=== PATIENT | female | born 1945 | race Caucasian/White ===

== ENCOUNTER 2017-11-27 12:37 | Inpatient (IN) | payer BC, OTHER ==
[2017-11-27] MEDS ORDERED: TUSSIONEX PENNKINETIC SUSP PO PRN (16:30)
[2017-11-27] MEDS ORDERED: NS 1/2 1000 ML IV 1,000 ML IV ONE (16:41)
[2017-11-27 17:05] LABS: BASOPHILS # (AUTO) 0.1 X10^3/uL (0.0-0.1); BASOPHILS % (AUTO) 0.6 % (0.2-1.0); EOSINOPHILS # (AUTO) 0.1 x10^3/uL (0.0-0.2); EOSINOPHILS % (AUTO) 1.3 % (0.9-2.9); HEMATOCRIT 41.3 % (36.0-47.0); HEMOGLOBIN 14.3 g/dL (12.0-16.0); LYMPHOCYTES % (AUTO) 23.9 % (21.0-51.0); MEAN CORPUSCULAR HGB CONC 34.5 g/dL (33.0-35.0); MEAN CORPUSCULAR VOLUME 89.7 fL (80.0-100.0); MEAN PLATELET VOLUME 8.1 fL (7.4-11.0); MONOCYTES # (AUTO) 0.8 x10^3/uL (0.3-0.8); MONOCYTES % (AUTO) 9.9 % (0.0-13.0); NEUTROPHILS # (AUTO) 5.4 x10^3/uL (2.2-4.8); NEUTROPHILS % (AUTO) 64.3 % (42.0-75.0); PLATELET COUNT 322 X10^3/uL (150.0-450.0); RED BLOOD COUNT 4.61 X10^6/uL (3.5-5.4); RED CELL DISTRIBUTION WIDTH 13.3 % (11.6-16.5); WHITE BLOOD COUNT 8.4 X10^3/uL (3.6-10.0)
[2017-11-27] MEDS: DUONEB 0.5 MG/3 MG NEB SCH ×3 (17:13→21:58)
[2017-11-27 17:25] LABS: ALANINE AMINOTRANSFERASE 22 Units/L (12-78); ALBUMIN 3.4 g/dL (3.4-5.0); ALKALINE PHOSPHATASE 92 Units/L (46-116); ASPARTATE AMINO TRANSFERASE 17 Units/L (15-37); BLOOD UREA NITROGEN 13 mg/dL (7-18); CALCIUM 9.1 mg/dL (8.5-10.1); CARBON DIOXIDE 31.3 mmol/L (21-32); CHLORIDE 103 mmol/L (98-107); CREATININE 0.99 mg/dL (0.55-1.02); SODIUM 139 mmol/L (136-145); TOTAL PROTEIN 7.7 g/dL (6.4-8.2); eGFR BLACK RACES > 60 (>60); eGFR NON BLACK RACES 58 (>60)
[2017-11-27 18:07] VITALS: BMI 31.4
[2017-11-27] MEDS: SOLU-Medrol 40 MG VIAL IVP SCH ×2 (18:07→21:48)
[2017-11-27] MEDS: NS 1/2 1000 ML IV 1,000 ML IV SCH (18:07)
[2017-11-27] MEDS: ROBITUSSIN DM PO SCH ×2 (18:08→21:48)
[2017-11-27] MEDS: ZITHROMAX INJ 500 MG VIAL 500 MG in NS 250 ML IV 250 ML IV SCH (18:08)
[2017-11-27] MEDS: VSL#3 PO SCH (18:17)
--- NOTE | 2017-11-27 18:39 | RAD ---
Two views of the chest Indication: Cough concerning for pneumonia. Comparison: Radiographs done November 02, 2013. Conclusion: The cardiac silhouette and pulmonary vasculature within normal limits. The lungs are jack r and there is no pleural effusion. Discogenic degenerative disease of thoracic spine is present. Reported By:
[2017-11-28] MEDS: RESTORIL CAP 15 MG PO PRN (00:03)
[2017-11-28] MEDS: SOLU-Medrol 40 MG VIAL IVP SCH ×3 (06:20→21:35)
[2017-11-28 06:23] LABS: BASOPHILS % (AUTO) 0.2 % (0.2-1.0); HEMATOCRIT 39.2 % (36.0-47.0); HEMOGLOBIN 13.4 g/dL (12.0-16.0); LYMPHOCYTES # (AUTO) 0.9 X10^3/uL (1.3-2.9); LYMPHOCYTES % (AUTO) 15.7 % (21.0-51.0); MEAN CORPUSCULAR HEMOGLOBIN 31.5 pg (27.0-34.0); MEAN CORPUSCULAR HGB CONC 34.1 g/dL (33.0-35.0); MEAN CORPUSCULAR VOLUME 92.3 fL (80.0-100.0); MEAN PLATELET VOLUME 8.7 fL (7.4-11.0); MONOCYTES # (AUTO) 0 x10^3/uL (0.3-0.8); MONOCYTES % (AUTO) 0.6 % (0.0-13.0); NEUTROPHILS % (AUTO) 83.5 % (42.0-75.0); PLATELET COUNT 272 X10^3/uL (150.0-450.0); RED BLOOD COUNT 4.25 X10^6/uL (3.5-5.4); RED CELL DISTRIBUTION WIDTH 13.7 % (11.6-16.5)
[2017-11-28 06:35] LABS: ALANINE AMINOTRANSFERASE 21 Units/L (12-78); ALKALINE PHOSPHATASE 82 Units/L (46-116); ASPARTATE AMINO TRANSFERASE 17 Units/L (15-37); BLOOD UREA NITROGEN 10 mg/dL (7-18); CALCIUM 8.8 mg/dL (8.5-10.1); CARBON DIOXIDE 27.4 mmol/L (21-32); CHLORIDE 104 mmol/L (98-107); COR CA(FOR HYPOALB) 9.6 mg/dL (8.5-10.1); COR NA(FOR HYPERGLY) 141 mmol/L (136-145); CREATININE 0.82 mg/dL (0.55-1.02); SODIUM 139 mmol/L (136-145); TOTAL PROTEIN 6.8 g/dL (6.4-8.2); eGFR BLACK RACES > 60 (>60); eGFR NON BLACK RACES > 60 (>60)
--- NOTE | 2017-11-28 06:38 | RAD ---
History: Cough Study: Portable AP chest Comparison: Yesterday Findings: The lungs remain grossly clear without atelectasis or consolidation. There is no significan t effusion. There are mildly increased interstitial lung markings. Impression: No definite acute cardiopulmonary disease Reported By:
[2017-11-28] MEDS ORDERED: NS 1/2 1000 ML IV 1,000 ML IV ONE ×2 (08:12→22:06)
[2017-11-28] MEDS: VSL#3 PO SCH (08:27)
[2017-11-28] MEDS: ZITHROMAX INJ 500 MG VIAL 500 MG in NS 250 ML IV 250 ML IV SCH (08:27)
[2017-11-28] MEDS: NS 1/2 1000 ML IV 1,000 ML IV SCH ×2 (08:27→21:39)
[2017-11-28] MEDS: ROBITUSSIN DM PO SCH ×4 (08:27→21:33)
[2017-11-28] MEDS: DUONEB 0.5 MG/3 MG NEB SCH ×4 (08:50→20:27)
[2017-11-28] MEDS ORDERED: REFLEX: PROVENTIL NEB & PulmiCORT NEB~ NEB SCH (10:30)
[2017-11-28] MEDS: CELEXA PO SCH (10:46)
[2017-11-28] MEDS: ASPIRIN EC 81 MG PO SCH (10:46)
[2017-11-28] MEDS: SYNTHROID 112 mcg TAB PO SCH (10:48)
[2017-11-28] MEDS: TOVIAZ PO SCH (10:48)
[2017-11-28] MEDS: LOPRESSOR TAB 25 MG PO SCH (10:48)
--- NOTE | 2017-11-28 11:30 | DR.UPDATE ---
H&P Update History and Physical Update: WAS SEEN IN THE OFFICE ON 11/27/17. A H&P WAS COMPLETED PRIOR TO ADMISSION. PATIENT HAS BEEN SEEN AND EXAMINED WITH NO CHANGES NOTED TO H&P. Changes noted: NO Yes with the following:
[2017-11-28] MEDS ORDERED: MAALOX or MYLANTA PO PRN (19:04)
[2017-11-28] MEDS: PULMICORT NEB TX 0.5 MG NEB SCH (20:27)
--- NOTE | 2017-11-28 20:43 | PCM.PROG ---
Progress Note - Progress Note for Day of Date: 11/28/17 - Subjective Subjective: IS BEING TREATED FOR BRONCHOPNEUMONIA. TODAY, SHE IS ALERT AND ORIENTED, LYING IN BED ON MORNING ROUNDS. SHE CONTINUES WITH COMPLAINTS OF SHORTNESS OF BREATH AND PRODUCTIVE COUGH. ON EXAMINATION, HEART IS REGULAR IN RATE AND RHYTHM. BILATERAL LUNGS ARE NOTED WITH SCATTERED WHEEZING AND RHONCHI THROUGHOUT. SHE IS CURRENTLY UTILIZING OXYGEN VIA NASAL CANNULA AT 2L/MIN. ABDOMEN IS ROUND, SOFT, AND NON-TENDER WITH NORMAL BOWEL SOUNDS NOTED IN ALL QUADRANTS. THERE IS NORMAL RANGE OF MOTION NOTED TO ALL EXTREMETIES. HER VITALS THIS MORNING ARE 97.6-79-20-96%-151/66. LABS WERE OBTAINED. SHE REMAINS HEMODYNAMICALLY STABLE TODAY. A CHEST XRAY WAS OBTAINED. IT REPORTED NO DEFINITE ACUTE CARDIOPULMONARY DISEASE. TODAY, WE WILL START SOLU -MEDROL 20MG IV Q8H. OTHERWISE, WE WILL CONTINUE WITH CURRENT PLAN OF CARE. WE PLAN TO FOLLOW UP WITH AM LABS AND CHEST XRAY AND CONTINUE TO MONITOR PATIENT. - Past Medical Family Social History Past Med/Fam/Surg Hx: No changes since H&P Allergies: Allergies No Known Drug Allergies Allergy (Verified 11/27/17 16:22) - Review of Systems ROS: No change since H&P - Vital Signs and I&O's Vital Signs: Temperature 97.8 F Pulse Rate [Right Brachial] 85 Pulse Rate [Left] 89 Pulse Rate 67 Respiratory Rate 22 Blood Pressure [Left Arm] 119/58 Blood Pressure [Right Arm] 135/60 Blood Pressure 105/42 O2 Sat by Pulse Oximetry 96 Intake and Output: Intake & Output 11/26/17 11/27/17 11/28/17 11/29/17 11:59 11:59 11:59 11:59 Intake Total 2059 132 Balance 2059 132 - Physical Exam Oriented: Normal Eyes: Normal. negative: Blurred Vision, Diplopia, Discharge, Pain, Redness, Photophobia, Other Ear: Normal. negative: Right, Left, Swelling, Ecchymosis, Hemotypanum, Abrasion , Laceration Nose: Normal. negative: Injected, Discharge, Blood, Other Throat: Normal Respiratory: Right, Left, Wheezes, Rhonchi Cardiovascular: Normal. negative: S3, S4, Murmur Auscultation: Bowel Sounds: Normal Palpation: Normal Tenderness: Normal Skin: Normal. negative: Decreased Turgur, Rash, Papular, Macular, Maculopapular , Vesicular, Pustular, Petechial, Red, Tender, Hot, Diaphoresis, Wound, Bruising , Ecchymosis, Other Musculoskeletal: Normal Psychiatric: Normal Mood Description: Calm Affect: Normal Speech Pattern: Clear, Appropriate - Laboratory and Diagnostics Result Diagrams: 11/28/17 05:35 11/28/17 05:35 Labs: 11/27/17 17:29 Sputum - Expectorated Sputum Sputum Culture - Preliminary 11/27/17 17:29 Sputum - Expectorated Sputum - Final Laboratory WBC 6.0 X10^3/uL (3.6-10.0) 11/28/17 05:35 RBC 4.25 X10^6/uL (3.5-5.4) 11/28/17 05:35 Hgb 13.4 g/dL (12.0-16.0) 11/28/17 05:35 Hct 39.2 % (36.0-47.0) 11/28/17 05:35 MCV 92.3 fL (80.0-100.0) 11/28/17 05:35 MCH 31.5 pg (27.0-34.0) 11/28/17 05:35 MCHC 34.1 g/dL (33.0-35.0) 11/28/17 05:35 RDW 13.7 % (11.6-16.5) 11/28/17 05:35 Plt Count 272 X10^3/uL (150.0-450.0) 11/28/17 05:35 MPV 8.7 fL (7.4-11.0) 11/28/17 05:35 Neut % 83.5 % (42.0-75.0) H 11/28/17 05:35 Lymph % 15.7 % (21.0-51.0) L 11/28/17 05:35 [place] % 0.6 % (0.0-13.0) 11/28/17 05:35 Eos % 0.0 % (0.9-2.9) L 11/28/17 05:35 Baso % 0.2 % (0.2-1.0) 11/28/17 05:35 Neut # 5.0 x10^3/uL (2.2-4.8) H 11/28/17 05:35 Lymph # 0.9 X10^3/uL (1.3-2.9) L 11/28/17 05:35 [place] # 0 x10^3/uL (0.3-0.8) L 11/28/17 05:35 Eos # 0.0 x10^3/uL (0.0-0.2) 11/28/17 05:35 Baso # 0.0 X10^3/uL (0.0-0.1) 11/28/17 05:35 Absolute Nucleated RBC 0.0 /100WBC 11/28/17 05:35 Sodium 139 mmol/L (136-145) 11/28/17 05:35 Corrected Sodium 141 mmol/L (136-145) 11/28/17 05:35 Potassium 4.3 mmol/L (3.5-5.1) 11/28/17 05:35 Chloride 104 mmol/L (98-107) 11/28/17 05:35 Carbon Dioxide 27.4 mmol/L (21-32) 11/28/17 05:35 BUN 10 mg/dL (7-18) 11/28/17 05:35 Creatinine 0.82 mg/dL (0.55-1.02) 11/28/17 05:35 Est GFR (MDRD) Af Amer > 60 (>60) 11/28/17 05:35 Est GFR (MDRD) Non-Af > 60 (>60) 11/28/17 05:35 Glucose 173 mg/dL (65-99) H 11/28/17 05:35 Calcium 8.8 mg/dL (8.5-10.1) 11/28/17 05:35 Corrected Calcium 9.6 mg/dL (8.5-10.1) 11/28/17 05:35 Total Bilirubin 0.20 mg/dL (0.2-1.0) 11/28/17 05:35 AST 17 Units/L (15-37) 11/28/17 05:35 ALT 21 Units/L (12-78) 11/28/17 05:35 Alkaline Phosphatase 82 Units/L (46-116) 11/28/17 05:35 Total Protein 6.8 g/dL (6.4-8.2) 11/28/17 05:35 Albumin 3.0 g/dL (3.4-5.0) L 11/28/17 05:35 Globulin 3.8 g/dL (2.5-4.5) 11/28/17 05:35 Albumin/Globulin Ratio 0.8 Ratio (1.1-2.1) L 11/28/17 05:35 Influenza Type A (PCR) Negative (NEGATIVE) 11/27/17 17:02 Influenza Type B (PCR) Negative (NEGATIVE) 11/27/17 17:02 - Plan (1) Bronchopneumonia Status: Acute Plan: CONTINUE IV ANTIBIOTICS AND RESPIRATORY TREATMENTS, SOLU-MEDROL 20MG IV Q8H, CONTINUE TO MONITOR
[2017-11-28] MEDS: ZOCOR TAB 20 MG PO SCH (21:33)
[2017-11-29] MEDS: RESTORIL CAP 15 MG PO PRN (00:35)
[2017-11-29] MEDS ORDERED: NS 1/2 1000 ML IV 1,000 ML IV ONE (05:15)
[2017-11-29] MEDS: SOLU-Medrol 40 MG VIAL IVP SCH ×3 (05:24→21:22)
[2017-11-29 05:26] LABS: BASOPHILS % (AUTO) 0.3 % (0.2-1.0); HEMATOCRIT 36.9 % (36.0-47.0); HEMOGLOBIN 12.5 g/dL (12.0-16.0); LYMPHOCYTES # (AUTO) 1.1 X10^3/uL (1.3-2.9); MEAN CORPUSCULAR HEMOGLOBIN 30.8 pg (27.0-34.0); MEAN CORPUSCULAR HGB CONC 33.8 g/dL (33.0-35.0); MEAN CORPUSCULAR VOLUME 91.2 fL (80.0-100.0); MEAN PLATELET VOLUME 8.5 fL (7.4-11.0); MONOCYTES # (AUTO) 0.3 x10^3/uL (0.3-0.8); MONOCYTES % (AUTO) 2.2 % (0.0-13.0); NEUTROPHILS # (AUTO) 11.2 x10^3/uL (2.2-4.8); NEUTROPHILS % (AUTO) 88.5 % (42.0-75.0); PLATELET COUNT 284 X10^3/uL (150.0-450.0); RED BLOOD COUNT 4.05 X10^6/uL (3.5-5.4); RED CELL DISTRIBUTION WIDTH 13.6 % (11.6-16.5); WHITE BLOOD COUNT 12.6 X10^3/uL (3.6-10.0)
[2017-11-29 05:38] LABS: ALANINE AMINOTRANSFERASE 20 Units/L (12-78); ALBUMIN 2.8 g/dL (3.4-5.0); ALKALINE PHOSPHATASE 74 Units/L (46-116); ASPARTATE AMINO TRANSFERASE 14 Units/L (15-37); BLOOD UREA NITROGEN 12 mg/dL (7-18); CALCIUM 8.6 mg/dL (8.5-10.1); CARBON DIOXIDE 29.2 mmol/L (21-32); CHLORIDE 107 mmol/L (98-107); COR CA(FOR HYPOALB) 9.6 mg/dL (8.5-10.1); COR NA(FOR HYPERGLY) 143 mmol/L (136-145); CREATININE 0.76 mg/dL (0.55-1.02); SODIUM 142 mmol/L (136-145); TOTAL PROTEIN 6.4 g/dL (6.4-8.2); eGFR BLACK RACES > 60 (>60); eGFR NON BLACK RACES > 60 (>60)
--- NOTE | 2017-11-29 06:12 | RAD ---
Examination: AP chest History: Cough and pneumonia Comparison 11/28/2017 Findings: Normal heart size with clear lungs and pleural spaces. Impression: No acute findings. Reported By:
[2017-11-29] MEDS: DUONEB 0.5 MG/3 MG NEB SCH ×4 (08:07→20:43)
[2017-11-29] MEDS: PULMICORT NEB TX 0.5 MG NEB SCH ×2 (08:07→20:44)
[2017-11-29] MEDS: ZITHROMAX INJ 500 MG VIAL 500 MG in NS 250 ML IV 250 ML IV SCH (09:04)
[2017-11-29] MEDS: CELEXA PO SCH (09:04)
[2017-11-29] MEDS: ROBITUSSIN DM PO SCH ×4 (09:04→21:21)
[2017-11-29] MEDS: SYNTHROID 112 mcg TAB PO SCH (09:05)
[2017-11-29] MEDS: TOVIAZ PO SCH (09:05)
[2017-11-29] MEDS: ASPIRIN EC 81 MG PO SCH (09:06)
[2017-11-29] MEDS: VSL#3 PO SCH (09:06)
[2017-11-29] MEDS: PriLOSEC PO SCH (09:06)
[2017-11-29] MEDS: LOPRESSOR TAB 25 MG PO SCH (09:06)
[2017-11-29] MEDS: NS 1/2 1000 ML IV 1,000 ML IV SCH (10:58)
[2017-11-29] MEDS: FORTAZ or TAZICEF INJ 1 GM in NS 100 ML IV + SPIKE MINIBAG* 100 ML IV SCH ×3 (11:04→21:22)
[2017-11-29] MEDS: LEVAQUIN PREMIX IV 750 MG 750 MG/150 ML BAG IV SCH (11:04)
[2017-11-29] MEDS: ZOCOR TAB 20 MG PO SCH (21:21)
[2017-11-30] MEDS: RESTORIL CAP 15 MG PO PRN (00:02)
[2017-11-30] MEDS: NS 1/2 1000 ML IV 1,000 ML IV SCH ×2 (04:08→17:24)
[2017-11-30] MEDS ORDERED: NS 1/2 1000 ML IV 1,000 ML IV ONE ×2 (05:36→21:50)
[2017-11-30] MEDS: FORTAZ or TAZICEF INJ 1 GM in NS 100 ML IV + SPIKE MINIBAG* 100 ML IV SCH ×3 (06:01→21:56)
[2017-11-30] MEDS: SOLU-Medrol 40 MG VIAL IVP SCH ×3 (06:01→21:55)
[2017-11-30 06:20] LABS: BASOPHILS % (AUTO) 0.3 % (0.2-1.0); HEMATOCRIT 36.9 % (36.0-47.0); HEMOGLOBIN 12.8 g/dL (12.0-16.0); LYMPHOCYTES # (AUTO) 0.9 X10^3/uL (1.3-2.9); LYMPHOCYTES % (AUTO) 9.5 % (21.0-51.0); MEAN CORPUSCULAR HEMOGLOBIN 31.7 pg (27.0-34.0); MEAN CORPUSCULAR HGB CONC 34.6 g/dL (33.0-35.0); MEAN CORPUSCULAR VOLUME 91.6 fL (80.0-100.0); MEAN PLATELET VOLUME 8.7 fL (7.4-11.0); MONOCYTES # (AUTO) 0.2 x10^3/uL (0.3-0.8); MONOCYTES % (AUTO) 2.3 % (0.0-13.0); NEUTROPHILS # (AUTO) 8.7 x10^3/uL (2.2-4.8); NEUTROPHILS % (AUTO) 87.9 % (42.0-75.0); PLATELET COUNT 291 X10^3/uL (150.0-450.0); RED BLOOD COUNT 4.03 X10^6/uL (3.5-5.4); RED CELL DISTRIBUTION WIDTH 13.9 % (11.6-16.5); WHITE BLOOD COUNT 9.8 X10^3/uL (3.6-10.0)
[2017-11-30 06:25] LABS: ALANINE AMINOTRANSFERASE 21 Units/L (12-78); ALBUMIN 3.4 g/dL (3.4-5.0); ALKALINE PHOSPHATASE 76 Units/L (46-116); ASPARTATE AMINO TRANSFERASE 13 Units/L (15-37); BLOOD UREA NITROGEN 13 mg/dL (7-18); CALCIUM 8.4 mg/dL (8.5-10.1); CARBON DIOXIDE 29.5 mmol/L (21-32); CHLORIDE 105 mmol/L (98-107); COR NA(FOR HYPERGLY) 142 mmol/L (136-145); CREATININE 0.71 mg/dL (0.55-1.02); SODIUM 141 mmol/L (136-145); TOTAL PROTEIN 6.4 g/dL (6.4-8.2); eGFR BLACK RACES > 60 (>60); eGFR NON BLACK RACES > 60 (>60)
--- NOTE | 2017-11-30 06:28 | RAD ---
Examination: AP chest History: SOB Comparison 11/29/2017 Findings: Continued normal heart size with clear lungs and pleural spaces. Impression: No change; no acute findings. Reported By:
[2017-11-30] MEDS ORDERED: COLACE CAP 100 MG PO PRN (08:23)
[2017-11-30] MEDS ORDERED: MILK OF MAGNESIA PO PRN (08:23)
[2017-11-30] MEDS: PULMICORT NEB TX 0.5 MG NEB SCH ×2 (08:36→20:46)
[2017-11-30] MEDS: DUONEB 0.5 MG/3 MG NEB SCH ×4 (08:36→20:46)
[2017-11-30] MEDS: VSL#3 PO SCH (08:49)
[2017-11-30] MEDS: CELEXA PO SCH (08:49)
[2017-11-30] MEDS: LEVAQUIN PREMIX IV 750 MG 750 MG/150 ML BAG IV SCH (08:49)
[2017-11-30] MEDS: SYNTHROID 112 mcg TAB PO SCH (08:49)
[2017-11-30] MEDS: ROBITUSSIN DM PO SCH ×4 (08:49→21:55)
[2017-11-30] MEDS: ASPIRIN EC 81 MG PO SCH (08:50)
[2017-11-30] MEDS: PriLOSEC PO SCH (08:50)
[2017-11-30] MEDS: LOPRESSOR TAB 25 MG PO SCH (08:50)
[2017-11-30] MEDS: TOVIAZ PO SCH (08:50)
[2017-11-30] MEDS: ZOCOR TAB 20 MG PO SCH (21:55)
[2017-11-30] MEDS: COLACE CAP 100 MG PO SCH (21:55)
[2017-12-01] MEDS ORDERED: NS 1/2 1000 ML IV 0 ML IV ONE (05:19)
[2017-12-01] MEDS: NS 1/2 1000 ML IV 1,000 ML IV SCH (05:31)
[2017-12-01] MEDS: FORTAZ or TAZICEF INJ 1 GM in NS 100 ML IV + SPIKE MINIBAG* 100 ML IV SCH (05:32)
[2017-12-01] MEDS: SOLU-Medrol 40 MG VIAL IVP SCH (05:32)
[2017-12-01 06:12] LABS: BASOPHILS % (AUTO) 0.1 % (0.2-1.0); HEMATOCRIT 38.1 % (36.0-47.0); HEMOGLOBIN 13.1 g/dL (12.0-16.0); LYMPHOCYTES # (AUTO) 0.9 X10^3/uL (1.3-2.9); LYMPHOCYTES % (AUTO) 10.6 % (21.0-51.0); MEAN CORPUSCULAR HEMOGLOBIN 31.1 pg (27.0-34.0); MEAN CORPUSCULAR HGB CONC 34.4 g/dL (33.0-35.0); MEAN CORPUSCULAR VOLUME 90.3 fL (80.0-100.0); MEAN PLATELET VOLUME 8.6 fL (7.4-11.0); MONOCYTES # (AUTO) 0.3 x10^3/uL (0.3-0.8); NEUTROPHILS # (AUTO) 7.7 x10^3/uL (2.2-4.8); NEUTROPHILS % (AUTO) 86.3 % (42.0-75.0); PLATELET COUNT 305 X10^3/uL (150.0-450.0); RED BLOOD COUNT 4.22 X10^6/uL (3.5-5.4); RED CELL DISTRIBUTION WIDTH 13.5 % (11.6-16.5); WHITE BLOOD COUNT 8.9 X10^3/uL (3.6-10.0)
[2017-12-01 06:44] LABS: ALANINE AMINOTRANSFERASE 8 Units/L (12-78); ALBUMIN 2.9 g/dL (3.4-5.0); ALKALINE PHOSPHATASE 77 Units/L (46-116); ASPARTATE AMINO TRANSFERASE 11 Units/L (15-37); BLOOD UREA NITROGEN 13 mg/dL (7-18); CALCIUM 8.4 mg/dL (8.5-10.1); CARBON DIOXIDE 32.2 mmol/L (21-32); CHLORIDE 104 mmol/L (98-107); COR CA(FOR HYPOALB) 9.3 mg/dL (8.5-10.1); COR NA(FOR HYPERGLY) 142 mmol/L (136-145); CREATININE 0.68 mg/dL (0.55-1.02); SODIUM 141 mmol/L (136-145); TOTAL PROTEIN 6.6 g/dL (6.4-8.2); eGFR BLACK RACES > 60 (>60); eGFR NON BLACK RACES > 60 (>60)
[2017-12-01 07:52] VITALS: BP 158/71
[2017-12-01] MEDS: SYNTHROID 112 mcg TAB PO SCH (08:00)
[2017-12-01] MEDS: LEVAQUIN PREMIX IV 750 MG 750 MG/150 ML BAG IV SCH (08:00)
[2017-12-01] MEDS: ROBITUSSIN DM PO SCH (08:00)
[2017-12-01] MEDS: LOPRESSOR TAB 25 MG PO SCH (08:00)
[2017-12-01] MEDS: PriLOSEC PO SCH (08:01)
[2017-12-01] MEDS: VSL#3 PO SCH (08:01)
[2017-12-01] MEDS: COLACE CAP 100 MG PO SCH (08:01)
[2017-12-01] MEDS: TOVIAZ PO SCH (08:01)
[2017-12-01] MEDS: ASPIRIN EC 81 MG PO SCH (08:01)
[2017-12-01] MEDS: CELEXA PO SCH (08:01)
--- NOTE | 2017-12-01 08:24 | RAD ---
Examination: Chest, PA and lateral views History: Cough, SOB Comparison 11/30/2017 Findings: Continued normal heart size with clear lungs and pleural spaces. Impression: No change; no acute chest findings. Reported By:
[2017-12-01] MEDS: DUONEB 0.5 MG/3 MG NEB SCH (09:07)
[2017-12-01] MEDS: PULMICORT NEB TX 0.5 MG NEB SCH (09:07)
== END 2017-12-01 10:45 | disposition home or self-care (01) | DRG 195 ==
LOC: OBS 12:37 → MED/SURG 11-28 14:43
PROVIDERS: ADMIT Internal Medicine; ATTEND Internal Medicine
DX: J18.0 Bronchopneumonia, unspecified organism (principal); J20.8 Acute bronchitis due to other specified organisms; R06.02 Shortness of breath; I10 Essential (primary) hypertension
CPT/HCPCS: 36415; 71045; 71046; 80053; 85025; 87040; 87070; 87205; 87502; 94640; 94760; A4222; G0378; J0456; J0713; J1956; J2920; J7620; J7626